=== PATIENT | female | born 1990 | race Caucasian/White ===

== ENCOUNTER 2021-04-29 13:32 | Emergency (ER) | payer OTHER, SELFPAY ==
[2021-04-29 13:39] VITALS: BP 125/76; PULSE 74; RESP 12; TEMP 37; O2SAT 100
--- NOTE | 2021-04-29 13:47 | ED.URI ---
HPI - URI/Sore Throat General Chief Complaint: Upper Respiratory Infection Stated Complaint: ears clogged/sore throat Time Seen by Provider: 04/29/21 13:45 Source: patient and RN notes reviewed Mode of arrival: ambulatory Limitations: no limitations History of Present Illness HPI Narrative: 30-year-old female presents with concern for sore throat, nasal congestion, clogged and painful ears, chills. Denies nausea, vomiting, diarrhea, cough, shortness of breath, body aches. She works in the medical field. She has been vaccinated for Covid. She has been using [id number] medication without relief MD elicited complaint: cough and sore throat Related Data Home Medications Medication Instructions Recorded Confirmed drospirenone-ethinyl estradiol 1 tablet PO DAILY 04/29/21 04/29/21 [APOLINAR (28)] Allergies Allergy/AdvReac Type Severity Reaction Status Date / Time No Known Allergies Allergy Verified 04/29/21 13:41 Review of Systems Review of Systems: CONSTITUTIONAL: Denies malaise, sweats, or fever. Reports chills EYES: Denies visual changes, redness, or discharge. ENT: Reports congestion, otalgia and sore throat. CARDIOVASCULAR: Denies chest pain, palpitations, or edema. RESPIRATORY: Denies cough. Denies dyspnea. GASTROINTESTINAL: Denies abdominal pain, nausea, vomiting, diarrhea SKIN: Denies rash or itching. MUSCULOSKELETAL: Denies myalgia. NEUROLOGIC: Denies headache. All systems reviewed & are unremarkable except as noted in HPI and below PMFSH Comments At time of signature, agree with nursing past medical, surgical, social and family history. There is no relevant family history pertinent to the presenting complaint Exam Narrative: GENERAL: Well-appearing, well-nourished, and in no acute distress. HEAD: Normocephalic EYES: PERRLA, conjunctivae clear ENT: Nares clear. Mucous membranes moist. TM pearly prasad with sharp light reflex bilaterally; no tragal tenderness. Oropharynx not erythematous without lesions. Tonsils not enlarged and without exudate, no drooling, no hoarseness, no trismus, uvula midline. NECK: Supple. No lymphadenopathy CHEST: Clear to auscultation, breath sounds equal. No wheezing, rhonchi, rales, or stridor. No respiratory distress, speaks in full sentences. HEART: Regular rate and rhythm. No murmur heard. SKIN: Warm, dry, no rash. NEURO: Alert and oriented x3. PSYCH: Normal mood and affect Course Course Emergency Course: Patient is aware of diagnosis, understands and agrees to treatment plan. Anticipatory guidance given. Patient agrees to follow-up as directed and is aware of reasons to seek care at the emergency department. Portions of this record may have been created with voice recognition software Vital Signs Vital signs: Vital Signs Temperature 98.6 F 04/29/21 13:39 Pulse Rate 74 04/29/21 13:39 Respiratory Rate 12 04/29/21 13:39 Blood Pressure 125/76 04/29/21 13:39 Pulse Oximetry 100 04/29/21 13:39 Temperature 98.6 F 04/29/21 13:39 Pulse Rate 74 04/29/21 13:39 Respiratory Rate 12 04/29/21 13:39 Blood Pressure 125/76 04/29/21 13:39 Pulse Oximetry 100 04/29/21 13:39 Reviewed. MDM - URI/Sore Throat MDM Narrative Medical decision making narrative: Differential diagnosis considered: Scott virus, strep pharyngitis, allergic rhinitis, upper respiratory tract infection, sinusitis, rhinosinusitis, nasopharyngitis. viral pharyngitis, otitis media, otitis externa, pneumonia, bronchitis, viral cough syndrome, viral syndrome, and influenza. Exam findings show no acute concerns or changes; patient is non-toxic appearing and is in no distress. Patient is appropriate for outpatient treatment and follow-up. Lab Data Attestation: I reviewed the patient's lab results. Labs: Strep Screen Presumptive Negative *(Reference Range: Negative)* Critical Care Time Critical Care Time Critical Care Time: No
[2021-04-30 17:54] LABS: SARS-CoV-2 RNA PCR Negative
== END 2021-04-29 14:35 | disposition home or self-care (01) ==
PROVIDERS: Emergency Provider Nurse Practitioner
DX: J06.9 Acute upper respiratory infection, unspecified (principal); Z20.822 Contact with and (suspected) exposure to COVID-19
CPT/HCPCS: 87081; 87426; 87880; 99213; C9803; G0463; U0003; U0005

== ENCOUNTER 2021-05-18 17:12 | Outpatient (CLI) | payer OTHER, SELFPAY ==
[2021-05-18 18:23] LABS: HIV 1/2 Ab P24 Ag Result Negative (Negative)
== END 2021-05-18 17:13 | disposition home or self-care (01) ==
LOC: ANHLAB 17:17
PROVIDERS: Visit Provider Nurse Practitioner
DX: R21 Rash and other nonspecific skin eruption (principal); Z11.4 Encounter for screening for human immunodeficiency virus [HIV]
CPT/HCPCS: 36415; 86038; 86703; G0432

== ENCOUNTER → 2022-03-08 15:18 | Outpatient (CLI) | payer OTHER, SELFPAY ==
--- NOTE | ~2022-03-08 | XR_ITS ---
EXAMINATION: XR foot RT min 3V, XR ankle RT min 3V DATE: 03/08/2022 15:33 INDICATION: Lateral right foot and ankle pain TECHNIQUE: 1. Anteroposterior, mortise, additional oblique and lateral view of the right ankle were obtained. 2. Dorsoplantar, two oblique and lateral views of the right foot were obtained. COMPARISON: None. FINDINGS: Suggestion of pes planus however this is not diagnostically evaluated on nonweightbearing imaging. Al ignment of the right foot and ankle is otherwise normal. No fracture. Moderate osteoarthritis at the first tarsal metatarsal joint with minimal to mild osteoarthritis at a few of the remaining tarsal me tatarsal joints, the calcaneocuboid joint and a few of the interphalangeal joints. No erosions to sug gest an inflammatory arthritis. No periosteal reaction. Soft tissues are unremarkable. No ankle joint effusion. IMPRESSION: 1. 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 Reviewed, dictated and finalized at location B. IMPRESSION: 1. 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
== END ==
PROVIDERS: PCP Nurse Practitioner; Visit Provider Nurse Practitioner
DX: M79.671 Pain in right foot (principal); M25.571 Pain in right ankle and joints of right foot; M19.071 Primary osteoarthritis, right ankle and foot
CPT/HCPCS: 73610; 73630

== ENCOUNTER 2022-05-25 08:00 | Outpatient (RCR) | payer OTHER, SELFPAY ==
--- NOTE | 2022-03-23 09:55 | PTOPEVAL1 ---
Assessment and note entered by Beatrice Jones, PT, DPT Evaluation Information Assessment Status Evaluation Diagnosis R foot pain Onset 03/05/22 Subjective Information Pt states she was working out on 03/05/22 when she was doing repeated calf raises on a step. She states the next morning she work up and instantly knew her ankle was hurting even before she got out of bed. She states she might have a slight club foot but never had this surgically addressed. She states her right foot is flat also. She states she can walk with pain, but really only puts weight through her toes. Reported Pain Level Pain Score 2: Self Report Assessment PT Clinical Summary Mary presents to therapy today for her initial evaluation with a diagnosis of R ankle pain. Upon evaluation she demonstrates structural abnormalities in her R ankle when compared to her L . She has a smaller lateral malleolus which based off the increased presence of tendon tension looks like it could change the line of pull. She has a significant navicular drop on the R when standing unsupported, this is being treated with custom orthotics. She demonstrates tenderness to palpation of her plantar fascia and has decreased ankle strength on the R. Skilled physical therapy services are indicated to improve ankle strength, stability, to minimize gait deviations, to manage pain, and to return to baseline function of unlimited mobility. Plan of Care Interventions Gait Training,Hot Pack/Cold Pack,Manual Therapy, Neuro Re-education,Patient/Caregiver Educati, Therapeutic Activities,Therapeutic Exercise PT Services Indicated Yes Treatment Frequency and 1x/wk for 4 wks Duration These treatments will address the objective and functional deficits as defined above. The patient will be advanced safely and appropriately in order for the patient to progress towards his/her prior level of function. Additional exercises will be introduced and as well as a comprehensive home exercise program upon discharge, if needed, ?to ensure carryover of functional gains achieved in the clinic. This treatment plan has been reviewed and agreement upon by the patient.
--- NOTE | 2022-04-20 10:01 | PTOPPROG ---
Assessment and note entered by Beatrice Jones, PT, DPT Evaluation Information Assessment Status Progress Diagnosis R foot pain Onset 03/05/22 Subjective Information Pt states she feels like her pain is better than when she started. SHe states she feels like she is back to her normal. Today she brought in old EMG studies showing some impaired nerve conductivity in her R foot. Assessment PT Clinical Summary Mary presents to therapy today for her progress report following 4 visits of skilled therapy to treat her R ankle pain. 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 She continues to demonstrate decreased ankle ROM and ankle strength on the R when compared to the L. She also demonstrates deviations during functional movement with asymmetric joint loading. Continuation of skilled physical therapy services are indicated to address the remaining deficits noted above, to improve ankle ROM, to improve intrinsic foot strength, to limit deviations, and to minimize the functional deficts of her R ankle. Plan of Care Interventions Check Out for Orthotic/Pr,Gait Training,Hot Pack/ Cold Pack,Manual Therapy,Neuro Re-education, Patient/Caregiver Educati,Therapeutic Activities, Therapeutic Exercise PT Services Indicated Yes Treatment Frequency and 1x/wk for 5 wks Duration These treatments will address the objective and functional deficits as defined above. The patient will be advanced safely and appropriately in order for the patient to progress towards his/her prior level of function. Additional exercises will be introduced and as well as a comprehensive home exercise program upon discharge, if needed, ?to ensure carryover of functional gains achieved in the clinic. This treatment plan has been reviewed and agreement upon by the patient.
--- NOTE | 2022-05-20 08:32 | PCPTNOTE ---
Patient called to cancel due to having to work early.
--- NOTE | 2022-05-25 08:30 | PTOPDC ---
Assessment and note entered by Beatrice Jones, PT, DPT Evaluation Information Assessment Status Discharge Diagnosis R foot pain Onset 03/05/22 Subjective Information Pt states she is doing good. She states she feels like she is back to normal. Reported Pain Level Pain Score 3: Self Report Assessment PT Clinical Summary Mary presents to therapy today for her progress report following 8 visits of skilled therapy to treat her R ankle pain. Today she continues to demonstrate improved R ankle ROM but this is still lacking from her uninvolved side. She also demonstrates progressing ankle dorsiflexion ROM. She has progressed well towards her therapy goals and no longer requires skilled therapy. She will be discharged at this time with instructions to continue her HEP upon discharge.
== END 2022-05-25 14:24 | disposition home or self-care (01) ==
LOC: ANHGOSHPT 08:00
PROVIDERS: PCP Nurse Practitioner; Visit Provider Nurse Practitioner
DX: M25.571 Pain in right ankle and joints of right foot (principal); M79.671 Pain in right foot
CPT/HCPCS: 97110; 97112; 97116; 97140; 97161; 97530

== ENCOUNTER 2022-12-09 20:06 | Outpatient (NON) | payer OTHER, SELFPAY | END 2022-12-09 20:07 | disposition home or self-care (01) | LOC: ANHGOSHLAB 20:07 | PROVIDERS: PCP Family Medicine; Visit Provider Family Medicine | DX: R30.0 Dysuria (principal) | CPT/HCPCS: 87086 ==

== ENCOUNTER 2022-12-29 13:29 | Outpatient (CLI) | payer OTHER, SELFPAY ==
[2022-12-29 13:49] LABS: Hematocrit 41.8 % (37.0-47.0); Hemoglobin 13.6 g/dL (12.0-15.0); Mean Corpuscular HGB Conc 32.5 g/dl (32-36); Mean Corpuscular Hemoglobin 29.4 pg (26-34); Mean Corpuscular Volume 90.3 fl (80-100); Mean Platelet Volume 9.3 fl (7.4-10.4); Platelet Count Result 249 k/mm3 (150-375); Red Blood Count 4.63 M/mm3 (4.2-5.4)
[2022-12-29 14:06] LABS: Alanine Aminotransferase 14 U/L (6-35); Albumin Level 4.3 g/dL (3.5-5.1); Alkaline Phosphatase 79 U/L (38-126); Anion Gap 6 mmol/L (8-16); Aspartate Amino Transferase 21 U/L (14-36); Bilirubin,Total 0.4 mg/dL (0.2-1.3); Blood Urea Nitrogen 11 mg/dL (7-17); Calcium 8.8 mg/dL (8.4-10.2); Carbon Dioxide 26 mmol/L (22-30); Chloride 101 mmol/L (98-107); Estimated Glomerular Filt Rate > 60; Glucose 90 mg/dL (65-110); Potassium 4.1 mmol/L (3.4-5.0); Sodium 133 mmol/L (137-145)
== END 2022-12-29 13:30 | disposition home or self-care (01) ==
LOC: ANHLAB 13:31
PROVIDERS: PCP Family Medicine; Visit Provider Family Medicine
DX: R30.0 Dysuria (principal); Z83.3 Family history of diabetes mellitus; Z79.899 Other long term (current) drug therapy
CPT/HCPCS: 36415; 80053; 84443; 85027; 87086

== ENCOUNTER 2023-01-20 16:38 | Outpatient (CLI) | payer OTHER, SELFPAY ==
[2023-01-20 17:25] LABS: Anion Gap 3 mmol/L (8-16); Blood Urea Nitrogen 19 mg/dL (7-17); Calcium 8.9 mg/dL (8.4-10.2); Carbon Dioxide 30 mmol/L (22-30); Chloride 102 mmol/L (98-107); Estimated Glomerular Filt Rate > 60; Glucose 91 mg/dL (65-110); Potassium 4.3 mmol/L (3.4-5.0); Sodium 135 mmol/L (137-145)
== END 2023-01-20 16:39 | disposition home or self-care (01) ==
LOC: ANHLAB 16:39
PROVIDERS: PCP Family Medicine; Visit Provider Family Medicine
DX: E87.1 Hypo-osmolality and hyponatremia (principal)
CPT/HCPCS: 36415; 80048

== ENCOUNTER 2023-04-21 10:13 | Outpatient (CLI) | payer OTHER, SELFPAY ==
[2023-04-21 10:54] LABS: Alanine Aminotransferase 13 U/L (6-35); Albumin Level 4.2 g/dL (3.5-5.1); Alkaline Phosphatase 74 U/L (38-126); Anion Gap 8 mmol/L (8-16); Aspartate Amino Transferase 19 U/L (14-36); Bilirubin,Total 0.5 mg/dL (0.2-1.3); Blood Urea Nitrogen 12 mg/dL (7-17); Calcium 8.9 mg/dL (8.4-10.2); Carbon Dioxide 27 mmol/L (22-30); Chloride 103 mmol/L (98-107); Estimated Glomerular Filt Rate > 60; Glucose 97 mg/dL (65-110); Potassium 4.3 mmol/L (3.4-5.0); Sodium 138 mmol/L (137-145)
[2023-04-21 11:32] LABS: Free T4 Free Thyroxine 0.95 ng/mL (0.78-2.19)
[2023-04-23 11:59] LABS: DHEA-Sulfate 293 mcg/dL (18-391)
[2023-04-24 09:54] LABS: Testosterone Total 65 ng/dL (2-45)
[2023-04-26 04:47] LABS: Insulin Level Total 6.2 uIU/mL (<=18.4); Progesterone 1.1 ng/mL (***); Prolactin 11.8 ng/mL (***)
== END 2023-04-21 10:14 | disposition home or self-care (01) ==
PROVIDERS: PCP Family Medicine; Visit Provider Nurse Practitioner
DX: E28.2 Polycystic ovarian syndrome (principal); R79.9 Abnormal finding of blood chemistry, unspecified
CPT/HCPCS: 36415; 80053; 82627; 83036; 83525; 84144; 84146; 84403; 84439; 84443

== ENCOUNTER 2024-04-12 16:27 | Outpatient (CLI) | payer OTHER, SELFPAY ==
[2024-04-12 17:07] LABS: Alanine Aminotransferase 12 U/L (6-35); Albumin Level 4.8 g/dL (3.5-5.1); Alkaline Phosphatase 85 U/L (38-126); Aspartate Amino Transferase 21 U/L (14-36); Bilirubin,Total 0.6 mg/dL (0.2-1.3)
[2024-04-12 17:47] LABS: HIV 1/2 Ab P24 Ag Result Negative (Negative)
[2024-04-13 12:00] LABS: Rapid Plasma Reagin Non-Reactive (NonReactive)
== END 2024-04-12 16:28 | disposition home or self-care (01) ==
LOC: ANHLAB 16:29
PROVIDERS: PCP Family Medicine; Visit Provider Nurse Practitioner
DX: Z11.3 Encounter for screening for infections with a predominantly sexual mode of transmission (principal); Z20.2 Contact with and (suspected) exposure to infections with a predominantly sexual mode of transmission; Z11.4 Encounter for screening for human immunodeficiency virus [HIV]
CPT/HCPCS: 36415; 80076; 86592; 86703; G0432